=== PATIENT | male | born 1955 | race Caucasian/White ===

== ENCOUNTER → 2023-08-07 12:27 | Outpatient (REF) | payer MEDICARE, OTHER, SELFPAY | LOC: HWRAD 12:27 | PROVIDERS: ATTENDING PHYSICIAN Family Medicine | DX: R74.8 Abnormal levels of other serum enzymes (principal); R17 Unspecified jaundice; R63.4 Abnormal weight loss | CPT/HCPCS: 74177; Q9967 ==